=== PATIENT | female | born 1960 | race Hispanic/Latino ===

== ENCOUNTER 2020-05-17 16:53 | Observation (INO) | payer OTHER ==
[2020-05-17] MEDS ORDERED: ACETAMINOPHEN EXTRA STRENGTH 500 MG TABLET ONE (18:58)
[2020-05-17] MEDS ORDERED: ONDANSETRON ODT 4 MG TAB ONE (18:59)
[2020-05-17] MEDS ORDERED: CEFTRIAXONE SODIUM 1 GM IVP SCH (22:15)
[2020-05-17] MEDS ORDERED: AZITHROMYCIN 500MG+NS 250ML 250 ML IV SCH (22:15)
[2020-05-17] MEDS ORDERED: DIPHENHYDRAMINE HCL 25 MG CAPSULE PO PRN (22:15)
[2020-05-17] MEDS ORDERED: NITROGLYCERIN 0.4 MG SL TAB SL PRN (22:15)
[2020-05-17] MEDS ORDERED: ACETAMINOPHEN 325 MG TAB PO PRN ×2 (22:15)
[2020-05-17] MEDS ORDERED: DEXTROSE 50%-WATER 50 ML DISP.SYRIN IV PRN (22:15)
[2020-05-17] MEDS ORDERED: GLUCAGON 1MG KIT 1 MG ML IM PRN (22:15)
[2020-05-17] MEDS ORDERED: ONDANSETRON HCL 4 MG/2 ML VIAL IV PRN (22:15)
[2020-05-17] MEDS ORDERED: CEFTRIAXONE SODIUM 1 GM ONE (22:43)
[2020-05-17] MEDS ORDERED: SODIUM CHLORIDE 0.9% 50 ML IV ONE (22:43)
[2020-05-17] MEDS ORDERED: AZITHROMYCIN 500MG+NS 250ML 250 ML IV ONE (22:51)
[2020-05-18] MEDS ORDERED: IOHEXOL 350 MG/ML 100ML INFUS..BTL IV ONE (04:38)
[2020-05-18] MEDS: INSULIN HUMULIN R 100 UNIT/ML 3ML SQ SCH ×2 (07:30→11:30)
[2020-05-18 07:55] VITALS: BP 117/63; PULSE 98; RESP 20
[2020-05-18] MEDS ORDERED: ENOXAPARIN SODIUM 30 MG/0.3 ML SQ ONE (08:32)
[2020-05-18] MEDS ORDERED: ENOXAPARIN SODIUM 30 MG/0.3 ML SQ SCH (09:00)
[2020-05-18 11:35] VITALS: BP 112/52; PULSE 92; RESP 16; TEMP 99.3
--- NOTE | 2020-05-18 15:48 | NUR ---
INITIAL SW spoke with patient's daughter, Ping Loco, [phone]. Patient lives with spouse. She has no home services. DME: glucometer (no insulin), oximeter. Patient is able to complete ADL's independently and drives. 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 PCP is MD at [facility]. Pharmacy is [facility] located on [address] in [place]. DCP is home. Addendum: 05/18/20 at 1550 by CJ ROMERO SS Amended: Links added.
== END 2020-05-18 14:58 | disposition home or self-care (01) ==
LOC: EDH 16:53 → EDHIP 22:05 → INTOOBSV 22:05
PROVIDERS: ADMIT Family Medicine; ATTEND Family Medicine
DX: A41.9 Sepsis, unspecified organism (principal); U07.1 COVID-19; J12.89 Other viral pneumonia; E11.9 Type 2 diabetes mellitus without complications; E89.0 Postprocedural hypothyroidism; M19.90 Unspecified osteoarthritis, unspecified site; Z85.850 Personal history of malignant neoplasm of thyroid; Z90.710 Acquired absence of both cervix and uterus
CPT/HCPCS: 36415 ×2; 71045; 71275; 80053 ×2; 81001; 81003; 82550; 82728; 82948; 83036; 83605; 83615 ×2; 83735 ×2; 83874; 84145; 84443; 84478; 84484; 85025 ×2; 85378; 85384; 85610; 85730; 86140 ×2; 87040 ×2; 87088; 87804 ×2; 93005; 93970; 96372; 99285; G0378 ×3; J0456; J0696; J1650; Q9967; U0003

== ENCOUNTER 2022-04-05 18:41 | Emergency (ER) | payer BC, OTHER ==
[~2022-04-05] VITALS: Ht 157.5 cm; Wt 87.1 kg
[~2022-04-05 18:41] MED LIST: DEXA6TAB PO
[2022-04-05] MEDS ORDERED: ONDANSETRON 4MG INJ IVP ONE (21:00)
[2022-04-05] MEDS ORDERED: KETOROLAC 30MG VIAL (30MG/ML) IVP ONE (21:00)
[2022-04-05 21:10] LABS: APPEARANCE,URINE Clear (CLEAR); BILIRUBIN,URINE Negative (NEGATIVE); COLOR,URINE Yellow (YELLOW); GLUCOSE, URINE (UA) Negative (NEGATIVE); KETONES,URINE Negative (NEGATIVE); LEUKOCYTE ESTERASE ,URINE Small (NEGATIVE); NITRATE,URINE Positive (NEGATIVE); OCCULT BLOOD,URINE Negative (NEGATIVE); PROTEIN,URINE Negative (NEGATIVE); UROBILINOGEN,URINE 0.2 mg/dL (0.2-1.0)
[2022-04-05 21:23] LABS: BACTERIA,URINE Few /HPF (None Seen); RBC,URINE 0-1 /HPF (0-1)
[2022-04-05 21:24] LABS: SQUAMOUS EPITHELIAL CELL,UR Few /HPF (0-2)
[2022-04-05 21:30] LABS: BASOPHILS % (AUTO) 0.4 % (0.0-5.0); EOSINOPHILS % (AUTO) 1.8 % (0.0-8.0); HEMATOCRIT 40.4 % (36-48); MEAN CORPUSCULAR HEMOGLOBIN 28.4 pg (27.0-33.0); MEAN CORPUSCULAR HGB CONC 31.7 g/dL (32.0-36.0); MEAN CORPUSCULAR VOLUME 89.8 fL (79-99); MONOCYTES % (AUTO) 7.8 % (3.0-13.0); NEUTROPHILS % (AUTO) 54.7 % (40.0-77.0); PLATELET COUNT (AUTO) 317 K/uL (130-400); RED CELL DISTRIBUTION WIDTH 13.4 % (11.0-15.5); WHITE BLOOD COUNT (AUTO) 13.7 K/uL (4.8-10.8)
[2022-04-05 21:52] LABS: CREATININE 0.6 mg/dL (0.5-1.5)
[2022-04-05] MEDS ORDERED: CEFTRIAXONE 1G VIAL IVP ONE (22:00)
[2022-04-05 22:01] LABS: ALBUMIN 3.8 g/dL (3.5-5.0); BILIRUBIN,TOTAL 0.4 mg/dL (0.2-1.0); TOTAL PROTEIN, SERUM 8.2 g/dL (6.0-8.3)
[2022-04-05] MEDS ORDERED: PROMETHAZINE HCL 25 MG/ML 1ML AMPULE IM ONE ×2 (22:08→22:30)
[2022-04-05] MEDS ORDERED: ONDA4TAB10 PO (22:32)
[2022-04-05] MEDS ORDERED: PHEN-847 PO (22:32)
[2022-04-05] MEDS ORDERED: CEPH500B PO (22:32)
[2022-04-05 22:43] VITALS: BP 128/64
== END 2022-04-05 23:00 | disposition home or self-care (01) ==
LOC: EDH 18:41
DX: N39.0 Urinary tract infection, site not specified (principal); K57.30 Diverticulosis of large intestine without perforation or abscess without bleeding; M19.90 Unspecified osteoarthritis, unspecified site; E11.9 Type 2 diabetes mellitus without complications; E78.00 Pure hypercholesterolemia, unspecified; I10 Essential (primary) hypertension; Z98.890 Other specified postprocedural states; Z90.49 Acquired absence of other specified parts of digestive tract; Z79.899 Other long term (current) drug therapy
CPT/HCPCS: 36415; 74176; 80053; 81001; 83690; 84484; 85025; 87077; 87088; 87186; 96372; 96374; 96375; 99284; J0696; J1885; J2405; J2550

== ENCOUNTER 2025-10-28 13:54 | Emergency (ER) | payer BC ==
[~2025-10-28] VITALS: Ht 157.5 cm; Wt 86.2 kg
[2025-10-28 14:30] LABS: IMMATURE GRANULOCYTE ABSOLUTE 0.04 K/uL (0-1); NUCLEATED RED BLOOD CELLS 0.0 % (0.0-0.19); PLATELET COUNT (AUTO) 323 K/uL (130-400); RED BLOOD CELL COUNT(AUTO) 4.05 MIL/uL (4.00-5.50); RED CELL DISTRIBUTION WIDTH 13.2 % (11.0-15.5); WHITE BLOOD COUNT (AUTO) 10.7 K/uL (4.8-10.8)
[2025-10-28 14:33] LABS: APPEARANCE,URINE CLEAR (CLEAR); GLUCOSE, URINE (UA) NEGATIVE (NEGATIVE); LEUKOCYTE ESTERASE ,URINE NEGATIVE Leu/uL (NEGATIVE); NITRATE,URINE NEGATIVE (NEGATIVE); OCCULT BLOOD,URINE NEGATIVE (NEGATIVE)
[2025-10-28 14:38] LABS: ADD UA MICROSCOPIC YES; SQUAMOUS EPITHELIAL CELL,UR RARE /HPF (0-2)
[2025-10-28 14:47] LABS: ASPARTATE AMINOTRANSFERASE 24.0 U/L (10-37); CREATININE 0.9 mg/dL (0.5-1.0); GLOMERULAR FILTR. RATE CALC 70.0 mL/min (>90); GLUCOSE,RANDOM 186.0 mg/dL (70-105); SODIUM SERUM 142.0 mmol/L (136-145); TOTAL PROTEIN, SERUM 7.2 g/dL (6.0-8.3); UREA NITROGEN, BLOOD 13.0 mg/dL (7-18)
[2025-10-28] MEDS ORDERED: IOHEXOL-350 75 ML VIAL IV ONE (14:53)
--- NOTE | 2025-10-28 15:53 | HMCIMG ---
This is duplicate /[place]
--- NOTE | 2025-10-28 18:39 | ERN ---
General Chief Complaint: Abdominal Pain Stated Complaint: LOWER ABD PAIN, FREQUENCY Time Seen by MD: 14:01 Time Seen by Midlevel: 14:01 Source: patient History of Present Illness Initial Comments The patient is a 65-year-old female presenting to the emergency department for evaluation of lower abdominal pain and urinary frequency that has been ongoing past three days. She also reports a history of diverticulitis Allergies: Coded Allergies: No Allergy Information Available (Verified Allergy, Unknown, 05/18/20) codeine (Unverified Allergy, Unknown, 10/28/25) Home Meds Active Scripts Ondansetron (Ondansetron Odt) 4 Mg Tab.rapdis, 4 MG PO TID, #21 TAB Prov:ADI ESTEVEZ 04/05/22 Phenazopyridine HCl (Pyridium) 200 Mg Tab, 200 MG PO TIDPC, #9 TAB TAKE WITH FOOD TO PREVENT STOMACH UPSET. Prov:ADI ESTEVEZ 04/05/22 Cephalexin Monohydrate (Keflex) 500 Mg Cap, 500 MG PO TID for 7 Days, #21 CAP Prov:ADI ESTEVEZ 04/05/22 Dexamethasone (Dexamethasone) 6 Mg Tablet, 6 MG PO DAILY for 10 Days, #10 TAB 0 Refills Prov:MARIELA CASTILLO AGACNP 05/19/20 Past Medical History Past Medical History: Arthritis, Diabetes-Type II, Diverticulitis, High Cholesterol, Hypertension Medical History Other: H(X) THYROID OF CANCER Past Surgical History: Hysterectomy, Cholecystectomy, Surgical History Other: THYROIDECTOMY ROS Dictation CONSTITUTIONAL: Negative except for HPI HEAD/FACE: Negative except for HPI EENT: Negative except for HPI RESPIRATORY: Negative except for HPI GASTROINTESTINAL/ABDOMINAL: Negative except for HPI GENITOURINARY: Negative except for HPI MUSCULOSKELETAL: Negative except for HPI INTEGUMENTARY: Negative except for HPI NEUROLOGICAL/PSYCH: Negative except for HPI HEMATOLOGIC/LYMPHATIC: Negative except for HPI All Systems Negative, Except as noted above. 13 point review of systems assessed and all negative except for above. Physical Exam Physical Exam Dictation Vital Signs reviewed General Appearance: Alert, oriented x 3, no acute distress, well developed, nourished. Head and Face: non-traumatic. Eyes: PERRL, pink conjunctivas, eyelid no trauma, anterior chamber with arcus senilis. Ears: Pinnas intact and no signs of trauma or erythema ear canals clear and no discharge TM no erythema Nose: No discharge, no bleeding. Oropharynx: Mouth normal, tongue pink, pharynx clear,no erythema, tonsils no exudates, no abscesses noted, mucous membrane moist Neck: Supple, non-tender, no thyromegaly, no masses, no JVD, no bruits Breast:Deferred Chest:No tenderness, no crepitus, no paradoxical movement, no retractions Lungs:Clear, well-ventilated, symmetric, no rales, no wheezing, no rhonchi, no stridor, good breath sounds bilaterally Heart: Regular rate, regular rhythm, no murmur, no gallops Vascular: no peripheral edema, Abdomen: Soft, positive bowel sounds, nondistended, no guarding, nontender, no rebound, no masses no hepatomegaly, no splenomegaly, no Llanes's sign, no hernias. Rectal: Deferred Genital: Deferred Neurological: Normal speech, motor function intact, sensory function intact Musculoskeletal: Neck nontender, full range of motion, back nontender, full range of motion, Extremities: nontender, full range of motion Skin: Color pink, dry, no turgor, no rash, no lacerations, no abrasions, no contusions. Lymphatic: Deferred Results Laboratory and Microbiology Lab and Micro Result Laboratory Tests Test 10/28/25 14:04 10/28/25 14:22 Urine Color COLORLESS (YELLOW) Urine Appearance CLEAR (CLEAR) Urine pH 5.5 (5.0-8.0) Urine Specific [place] 1.004 (1.001-1.031) Urine Protein NEGATIVE mg/dL (NEGATIVE) Urine Glucose (UA) NEGATIVE mg/dL (NEGATIVE) Urine Ketones NEGATIVE mg/dL (NEGATIVE) Urine Occult Blood NEGATIVE (NEGATIVE) Urine Nitrate NEGATIVE (NEGATIVE) Urine Bilirubin NEGATIVE mg/dL (NEGATIVE) Urine Urobilinogen 0.2 mg/dL (0.2-1.0) Urine Leukocyte Esterase NEGATIVE [place]/uL Urine RBC 2-5 /HPF (0-1) H Urine WBC 2-5 /HPF (0-1) H Urine Squamous Epithelial Cells RARE /HPF (0-2) Urine Bacteria None /HPF (None Seen) White Blood Count 10.7 K/uL (4.8-10.8) Red Blood Count 4.05 MIL/uL (4.00-5.50) Hemoglobin 11.9 g/dL (12.0-16.0) L Hematocrit 36.3 % (36-48) Mean Corpuscular Volume 89.6 fL (79-99) Mean Corpuscular Hemoglobin 29.4 pg (27.0-33.0) Mean Corpuscular Hemoglobin Concent 32.8 g/dL (32.0-36.0) Red Cell Distribution Width 13.2 % (11.0-15.5) Platelet Count 323 K/uL (130-400) Mean Platelet Volume 9.2 fL (7.5-10.5) Immature Granulocyte % (Auto) 0.4 % (0-1) Neutrophils (%) (Auto) 59.5 % (40.0-77.0) Lymphocytes (%) (Auto) 30.9 % (21.0-51.0) Monocytes (%) (Auto) 7.4 % (3.0-13.0) Eosinophils (%) (Auto) 1.5 % (0.0-8.0) Basophils (%) (Auto) 0.3 % (0.0-5.0) Neutrophils # (Auto) 6.4 K/uL (1.8-7.7) Lymphocytes # (Auto) 3.3 K/uL (1.0-4.8) Monocytes # (Auto) 0.8 K/uL (0.1-1.0) Eosinophils # (Auto) 0.16 K/uL (0.00-0.70) Basophils # (Auto) 0.03 K/uL (0.00-0.20) Absolute Immature Granulocyte (auto 0.04 K/uL (0-1) Nucleated Red Blood Cells 0.0 % (0.0-0.19) Sodium Level 142 mmol/L (136-145) Potassium Level 3.7 mmol/L (3.5-5.1) Chloride Level 105 mmol/L (101-111) Carbon Dioxide Level 27 mmol/L (21-32) Blood Urea Nitrogen 13 mg/dL (7-18) Creatinine 0.9 mg/dL (0.5-1.0) Glomerular Filtration Rate Calc 70 mL/min (>90) Random Glucose 186 mg/dL (70-105) H Lactic Acid Level 1.8 mmol/L (0.8-2.5) Total Calcium 8.5 mg/dL (8.5-10.1) Total Bilirubin 0.3 mg/dL (0.2-1.0) Aspartate Amino Transf (AST/SGOT) 24 U/L (10-37) Alanine Aminotransferase (ALT/SGPT) 32 U/L (12-78) Alkaline Phosphatase 91 U/L (50-136) Total Protein 7.2 g/dL (6.0-8.3) Albumin 3.1 g/dL (3.5-5.0) L Lipase 59 U/L (16-77) Labs Reviewed?: Yes MDM MDM: Differential diagnosis: Diverticulitis, urinary tract infection, pyelonephritis There are no social concerns with this patient. Prescription drug management Prescriptions will include: None Medical management and examination interpretation discussions were had by me with other qualified healthcare professionals as indicated for the patient's care. ED Course Orders Procedure Category Date Status Time Cbc With Differential LAB 10/28/25 Complete 14:13 Comprehensive LAB 10/28/25 Complete Metabolic Panel 14:13 Lipase LAB 10/28/25 Complete 14:13 Lactic Acid LAB 10/28/25 Complete 14:13 Urinalysis Profile LAB 10/28/25 Complete 14:13 Ct Abdomen/Pelvis CT 10/28/25 Resulted W/Contrast 14:13 Iohexol (Omnipaque) PHA 10/28/25 Complete 14:53 Acetaminophen 500mg PHA 10/28/25 Complete Tab (Tylenol 500mg T 16:30 Ketorolac PHA 10/28/25 Complete Tromethamine 15mg/Ml 17:00 Us Pelvic Non-Ob US 10/28/25 Resulted Limited 16:59 Vital Signs Date Time Temp Pulse Resp B/P (MAP) Pulse Ox O2 Delivery O2 Flow Rate FiO2 10/28/25 19:38 98.2 80 15 170/85 95 Room Air* 0 10/28/25 17:15 81 20 140/64 95 Room Air* 0 10/28/25 15:30 88 18 154/81 96 Room Air* 0 10/28/25 14:12 98.2 85 20 149/90 100 Room Air* 0 10/28/25 13:56 98.4 83 16 176/91 96 Room Air 0 [place] [address] [address] IMAGING REPORT Signed PATIENT: BERNARD AGUILAR MR#: [id number] : 1960 SEX: F AGE: 65 LOCATION: [facility] ORDER 01 STATUS: [facility] REPORT#: [id number] SERVICE 58 REASON: pelvic pain ORDERING PHYSICIAN: LILA MARCELO PAC PROCEDURE: PELVLTD - US PELVIC NON-OB LIMITED EXAM: US Pelvis COMPARISON: None provided. CLINICAL HISTORY: pelvic pain TECHNIQUE: Transabdominal pelvic ultrasound (complete) with image documentation. FINDINGS: UTERUS/CERVIX: Uterus is not visualized, consistent with post-hysterectomy status. OVARIES: Both ovaries are not visualized. BLADDER: Bladder appears unremarkable. FREE FLUID: No free fluid in the pelvis. IMPRESSION: Post-hysterectomy status. No adnexal mass or free fluid identified. Bladder unremarkable. /[place] DICTATED BY: TOMMY LEVINE Jr., MD DATE: 10/28/251943 ELECTRONICALLY SIGNED BY: TOMMY LEVINE Jr., MD DATE: 10/28/251943 DX & DISP Disposition: Discharge Departure Impression: Primary Impression: Left lower quadrant abdominal pain Condition: Stable Referrals: SHWETA KENNEY (PCP) I have reviewed the case, and I agree with, Diagnosis and Plan I performed the substantive portion of the visit. I have reviewed and personally made and approve the management plan that is documented in the note by myself or the MOMO. I acknowledge for responsibility for the patient's management plan. LILA MARCELO PAC Oct 28, 2025 18:39
--- NOTE | 2025-10-28 18:45 | HMCIMG ---
EXAM: US Pelvis COMPARISON: None provided. CLINICAL HISTORY: pelvic pain TECHNIQUE: Transabdominal pelvic ultrasound (complete) with image documentation. FINDINGS: UTERUS/CERVIX: Uterus is not visualized, consistent with post-hysterectomy status. OVARIES: Both ovaries are not visualized. BLADDER: Bladder appears unremarkable. FREE FLUID: No free fluid in the pelvis. IMPRESSION: Post-hysterectomy status. No adnexal mass or free fluid identified. Bladder unremarkable. /[place]
[2025-10-28 19:38] VITALS: BP 170/85; PULSE 80; RESP 15; TEMP 98.2; O2SAT 95
--- NOTE | 2025-10-28 19:38 | NUR ---
PT CARE ASSUMED AT THIS TIME
== END 2025-10-28 19:42 | disposition home or self-care (01) ==
LOC: EDH 13:54
DX: R10.32 Left lower quadrant pain (principal); E11.9 Type 2 diabetes mellitus without complications; E78.00 Pure hypercholesterolemia, unspecified; I10 Essential (primary) hypertension; M19.90 Unspecified osteoarthritis, unspecified site; Z79.52 Long term (current) use of systemic steroids; Z85.850 Personal history of malignant neoplasm of thyroid; Z88.5 Allergy status to narcotic agent; Z90.49 Acquired absence of other specified parts of digestive tract; Z90.710 Acquired absence of both cervix and uterus
CPT/HCPCS: 99285; 74177; 96374; 76857; 80053; 83690; 85025; 83605; 81001; 36415; J1885; Q9967